=== PATIENT | male | born 1995 | race Caucasian/White ===

== ENCOUNTER → 2020-08-22 11:20 | Outpatient (CLI) | payer SELFPAY ==
--- NOTE | 2020-08-22 | DI.US.S_ITS ---
PROCEDURE: US SCROTUM INDICATIONS: LEFT SCROTAL LUMP TECHNIQUE: Real-time scanning was performed of the scrotum and testicles, with image documentation. Color and pulse Doppler interrogation was performed of both testicles. COMPARISON: None. FINDINGS: Right: Testicle is normal in size at 4.9 x 2.6 x 2.5 cm, and homogenous in echotexture. Epididymis is normal in overall size and morphology. No hydrocele or varicoceles. Overlying scrotal skin is normal in thickness. Left: Testicle is normal in size at 5.3 x 2.4 x 2.6 cm, and homogeneous in echotexture. There is a 4 x 4 x 5 mm cyst in the peripheral aspect of the left epididymal head corresponding to patient's palpable abnormality. Epididymis is otherwise normal in overall size and morphology. Trace, simple hydrocele. No varicoceles. Overlying scrotal skin is normal in thickness. Doppler: Color and pulse Doppler demonstrate normal and symmetric arterial flow in both testicles. IMPRESSION: 1. Simple 5 mm left epididymal head cyst corresponds to the patient's palpable abnormality. 2. Trace left hydrocele. 3. Normal scrotal morphology bilaterally. Dictated by: Noy Simmons M.D. on 08/22/2020 at 11:28 Approved by: Noy Simmons M.D. on 08/22/2020 at 11:30
== END ==
PROVIDERS: PCP Family Medicine; Referring Provider Family Medicine; Visit Provider Registered Nurse
DX: N50.3 Cyst of epididymis (principal)
CPT/HCPCS: 76870